=== PATIENT | male | born 1950 ===

== ENCOUNTER → 2024-01-26 14:48 | Outpatient (BNVA) | payer MEDICARE, MEDICAID, SELFPAY | PROVIDERS: Visit Provider Internal Medicine Cardiovascular Disease | DX: Z95.0 Presence of cardiac pacemaker (principal); I44.2 Atrioventricular block, complete | CPT/HCPCS: 99202 ==

== ENCOUNTER 2024-04-11 07:58 | Outpatient (CLI) | payer MEDICARE, MEDICAID, SELFPAY ==
--- NOTE | 2024-04-11 07:45 | RT.EKG_ITS ---
APPROVED REPORT Exam: Resting ECG Reason for Exam: ASCVD Patient Location: O HR:87 bpm ECG Measurements Heart Rate 87 AXIS SC 167 P 12 QRSd 91 QRS 27 QT 372 T 47 QTc 448 Conclusion Sinus rhythm...normal P axis, V-rate 50- 99 Atrial premature complexes...SV complexes w/ short R-R intvls Otherwise normal ECG
== END 2024-04-11 07:59 | disposition home or self-care (01) ==
LOC: DI.CARD 07:58
PROVIDERS: Visit Provider Student in an Organized Health Care Education/Training Program
DX: I25.10 Atherosclerotic heart disease of native coronary artery without angina pectoris (principal); Z95.0 Presence of cardiac pacemaker
CPT/HCPCS: 93010

== ENCOUNTER → 2024-04-11 08:05 | Outpatient (BNVA) | payer MEDICARE, MEDICAID, SELFPAY | PROVIDERS: Visit Provider Student in an Organized Health Care Education/Training Program | DX: R55 Syncope and collapse (principal); Z95.810 Presence of automatic (implantable) cardiac defibrillator | CPT/HCPCS: 93005; 93280 ==

== ENCOUNTER → 2025-05-28 08:53 | Outpatient (BNVA) | payer MEDICARE, MEDICAID, SELFPAY | PROVIDERS: Visit Provider Nurse Practitioner Gerontology | DX: N40.1 Benign prostatic hyperplasia with lower urinary tract symptoms (principal); N13.9 Obstructive and reflux uropathy, unspecified; Z97.8 Presence of other specified devices; R33.9 Retention of urine, unspecified; Z46.6 Encounter for fitting and adjustment of urinary device; E11.59 Type 2 diabetes mellitus with other circulatory complications; I10 Essential (primary) hypertension; E11.22 Type 2 diabetes mellitus with diabetic chronic kidney disease; N18.5 Chronic kidney disease, stage 5 | CPT/HCPCS: 99215; 51702 ==

== ENCOUNTER 2025-05-28 11:25 | Outpatient (CLI) | payer MEDICARE, MEDICAID, SELFPAY ==
[2025-05-28 21:45] LABS: PSA, Diagnostic 2.8 ng/mL (<=6.5)
== END 2025-05-28 11:26 | disposition home or self-care (01) ==
LOC: LBO 11:26
PROVIDERS: Visit Provider Nurse Practitioner Gerontology
DX: N13.9 Obstructive and reflux uropathy, unspecified (principal); N40.1 Benign prostatic hyperplasia with lower urinary tract symptoms
CPT/HCPCS: 36415; 51702; 99215; 84153